=== PATIENT | female | born 1970 | race Hispanic/Latino ===

== ENCOUNTER 2019-04-28 18:05 | Emergency (ER) | payer OTHER, SELFPAY ==
--- NOTE | 2019-04-28 18:12 | ED.GENADULT ---
HPI - General Adult General Chief complaint: Upper Respiratory Infection Stated complaint: Cough,Congestion Time Seen by Provider: 04/28/19 18:23 Source: patient Mode of arrival: ambulatory Limitations: no limitations History of Present Illness HPI narrative: 48-year-old female patient presents to the [facility] with complaints of cold symptoms for the past 5 days. Patient states she has had cough, congestion. Patient states she has had a little bit of shortness of breath with the cough. Patient states she has had a lot of nasal drainage, fevers, body aches chills and just overall not feeling well. Patient states that she did not get a flu shot this year. Patient does have a history of asthma but states that she has not tried using her inhalers for the cough, or shortness of breath. Related Data Home Medications Medication Instructions Recorded Confirmed albuterol sulfate 90 mcg/actuation 1 puff INHALATION Q4H PRN 03/23/19 aerosol inhaler budesonide-formoterol HFA 160 2 puff INHALATION Q12H 03/23/19 mcg-4.5 mcg/actuation aerosol inhaler epinephrine 0.3 mg/0.3 mL 0.3 mg IM ONCE 03/23/19 injection, auto-injector losartan 100 1 tablet PO DAILY 03/23/19 mg-hydrochlorothiazide 12.5 mg tablet montelukast 10 mg tablet 10 mg PO DAILY 03/23/19 Allergies Allergy/AdvReac Type Severity Reaction Status Date / Time Iodinated Contrast Media Allergy Unknown Verified 11/21/09 13:13 iodine Allergy Unknown ANAPHYLAXIS Unverified 12/29/15 22:58 Penicillins Allergy Unknown Verified 09/27/14 15:18 shellfish derived Allergy Unknown Verified 09/27/14 15:18 Review of Systems Review of Systems: Narrative: CONSTITUTIONAL: Positive fever, body aches, chills, and sweats. EYES: Denies visual changes, redness, or discharge. ENT: Positive rhinorrhea, congestion, denies sore throat, or otalgia. CARDIOVASCULAR: Denies chest pain, palpitations, or edema. RESPIRATORY: Positive cough with dyspnea. GASTROINTESTINAL: Denies abdominal pain, nausea, vomiting, or diarrhea. GENITOURINARY: Denies dysuria or hematuria. SKIN: Denies rash or itching. MUSCULOSKELETAL: Denies back pain, joint pain, or myalgia. NEUROLOGIC: Denies headache, numbness, or weakness. PSYCHIATRIC: Denies anxiety or depression. PMFSH Family History Family History Mother Hypertension Family history of chronic obstructive pulmonary disease Family history of type 2 diabetes mellitus Patient's mother is Sibling Hypertension Father Family history of alcoholism Patient's father is Social History Social History Smoking status: Never smoker Alcohol intake: current Comments At the time of my signature I agree with nursing past medical history, surgical, social, and family history. There is no relevant family history pertinent to the presenting complaint. Exam Narrative: Exam Narrative: GENERAL: ill-appearing, well-nourished, and in no acute distress. HEAD: Normocephalic, atraumatic. No tenderness noted to frontal and maxillary sinuses on palpation EYES: PERRLA and EOMI. ENT: Nares with erythema and edema noted bilaterally, no rhinorrhea or epistaxis. Mucous membranes moist. Posterior pharynx with no erythema, tonsillar margin, exudates or lesions present. NECK: Supple. No lymphadenopathy CHEST: Clear to auscultation. No respiratory distress. Patient able talk in clear complete sentences. No tripoding noted. HEART: Regular rate and rhythm. No murmur heard. Normal peripheral pulses. ABDOMEN: Soft, nontender, nondistended, normal active bowel sounds. EXTREMITIES: Normal range of motion. No edema. SKIN: Warm, dry, no rash. NEURO: No focal deficits. Alert and oriented x3. Course Vital Signs Vital signs: Vital Signs Temperature 37.0 C 04/28/19 18:15 Pulse Rate 72 04/28/19 18:15 Respiratory Rat
[2019-04-28 18:15] VITALS: BP 140/86; PULSE 72; RESP 16; TEMP 37; O2SAT 98
== END 2019-04-28 18:36 | disposition home or self-care (01) ==
PROVIDERS: Emergency Provider Nurse Practitioner Family; PCP Family Medicine
DX: J06.9 Acute upper respiratory infection, unspecified (principal); J45.31 Mild persistent asthma with (acute) exacerbation; I10 Essential (primary) hypertension
CPT/HCPCS: 99213; G0463

== ENCOUNTER 2020-02-14 12:26 | Outpatient (NON) | payer OTHER, SELFPAY ==
[2020-02-14 22:32] LABS: SARS-CoV-2 RNA PCR Negative
== END 2020-02-14 12:27 ==
LOC: ANHCOVIDDT 12:29
PROVIDERS: PCP Family Medicine; Visit Provider Physician Assistant
DX: R68.89 Other general symptoms and signs (principal); Z20.828 Contact with and (suspected) exposure to other viral communicable diseases
CPT/HCPCS: 87635; C9803; U0003